=== PATIENT | female | born 1995 | race Caucasian/White ===

== ENCOUNTER 2016-11-03 11:22 | Outpatient (CLI) | payer MEDICAID | END 2016-11-03 11:23 | disposition home or self-care (01) | DX: M25.572 Pain in left ankle and joints of left foot (principal); M79.672 Pain in left foot ==

== ENCOUNTER 2016-12-30 13:32 | Emergency (ER) | payer MEDICAID | END 2016-12-30 14:45 | disposition left against medical advice (07) | DX: Z53.21 Procedure and treatment not carried out due to patient leaving prior to being seen by health care provider (principal) ==

== ENCOUNTER 2017-01-11 14:04 | Outpatient (CLI) | payer MEDICAID | END 2017-01-11 14:05 | DX: M25.50 Pain in unspecified joint (principal) ==

== ENCOUNTER 2017-03-09 13:51 | Outpatient (CLI) | payer MEDICAID ==
[2017-03-09 18:00] LABS: CALCIUM 9.4 mg/dL (8.5-10.3); CREATININE 0.8 mg/dL (0.4-1.0); POTASSIUM 3.6 mmol/L (3.5-5.0)
[2017-03-09 18:15] LABS: PROLACTIN 7.4 ng/mL
[2017-03-09 18:28] LABS: THYROID STIMULATING HORMONE 1.11 uIU/mL (0.34-5.60)
== END 2017-03-09 13:52 | disposition home or self-care (01) ==
LOC: LAB.F 13:51
PROVIDERS: ATTEND Nurse Practitioner Family
DX: N64.3 Galactorrhea not associated with childbirth (principal)
CPT/HCPCS: 36415; 80048; 84146; 84443

== ENCOUNTER 2020-05-28 08:00 | Outpatient (CLI) | payer MEDICAID ==
[2020-05-28 14:29] LABS: MUDS CUTOFF CONCENTRATIONS CUTOFF CONC BELOW:
[2020-05-28 14:38] LABS: BILIRUBIN,URINE NEGATIVE (NEGATIVE); GLUCOSE, URINE (UA) NEGATIVE (NEGATIVE); KETONES,URINE (UA) NEGATIVE (NEGATIVE); LEUKOCYTE ESTERASE, URINE NEGATIVE (NEGATIVE); NITRITE,URINE NEGATIVE (NEGATIVE); OCCULT BLOOD,URINE NEGATIVE (NEGATIVE); PROTEIN,URINE NEGATIVE (NEGATIVE); UROBILINOGEN,URINE 0.2 (NORMAL) E.U./dL (NORMAL)
[2020-05-28 14:52] LABS: BACTERIA,URINE None Seen /HPF (None Seen); CLARITY,URINE CLEAR (CLEAR); RBC,URINE None Seen /HPF (0-5); SQUAMOUS EPITHELIAL CELL,UR MOD Squamous (<= Few)
[2020-05-28 14:53] LABS: AMPHETAMINE SCREEN,URINE NEGATIVE (NEGATIVE); BENZODIAZEPINES SCREEN, URINE NEGATIVE (NEGATIVE); COCAINE SCREEN URINE NEGATIVE (NEGATIVE); METHADONE SCREEN, URINE NEGATIVE (NEGATIVE); METHAMPHETAMINES SCREEN, URINE NEGATIVE (NEGATIVE); OPIATE SCREEN, URINE NEGATIVE (NEGATIVE); OXYCODONE SCREEN, URINE NEGATIVE (NEGATIVE); PROPOXYPHENE SCREEN, URINE NEGATIVE (NEGATIVE); TRICYCLIC ANTIDEPRESSANT,URINE NEGATIVE (NEGATIVE)
== END 2020-05-28 23:59 | disposition home or self-care (01) ==
LOC: LAB.R 08:00
PROVIDERS: ATTEND Nurse Practitioner Obstetrics & Gynecology
DX: Z36.89 Encounter for other specified antenatal screening (principal); Z11.3 Encounter for screening for infections with a predominantly sexual mode of transmission
CPT/HCPCS: 80306; 81001; 87086; 87491; 87591; 87661

== ENCOUNTER 2020-05-28 09:34 | Outpatient (CLI) | payer MEDICAID ==
[2020-05-28 10:48] LABS: BASOPHILS # (AUTO) 0.1 10^3/uL (0.0-0.1); BASOPHILS % (AUTO) 0.5 %; EOSINOPHILS # (AUTO) 0.1 10^3/uL (0.0-0.7); EOSINOPHILS % (AUTO) 0.7 %; HGB - HEMOGLOBIN 13.8 g/dL (12.0-16.0); LYMPHOCYTES # (AUTO) 1.9 10^3/uL (1.5-3.5); LYMPHOCYTES % (AUTO) 18.7 %; MEAN CORPUSCULAR HEMOGLOBIN 31.2 pg (27.0-31.0); MEAN CORPUSCULAR HGB CONC 34.1 g/dL (32.0-36.0); MEAN CORPUSCULAR VOLUME 91.4 fL (81.0-99.0); MEAN PLATELET VOLUME 10.4 fL (7.9-10.8); MONOCYTES # (AUTO) 0.7 10^3/uL (0.0-1.0); MONOCYTES % (AUTO) 6.9 %; NEUTROPHILS # (AUTO) 7.5 10^3/uL (1.5-6.6); NEUTROPHILS % (AUTO) 72.7 %; PLT - PLATELET COUNT 269 10^3/uL (130-450); RED BLOOD COUNT 4.43 10^6/uL (4.20-5.40); RED CELL DISTRIBUTION WIDTH 12.3 % (12.0-15.0); WHITE BLOOD COUNT 10.3 x10^3/uL (4.8-10.8)
[2020-05-29 12:11] LABS: HIV AG/AB 4TH GEN NON-REACTIVE (NON-REACTIVE)
[2020-05-29 12:42] LABS: HEPATITIS B SURFACE ANTIGEN NON-REACTIVE (NON-REACTIVE); HEPATITIS C ANTIBODY NON-REACTIVE (NON-REACTIVE)
== END 2020-05-28 09:35 | disposition home or self-care (01) ==
LOC: LAB 09:34
PROVIDERS: ATTEND Nurse Practitioner Obstetrics & Gynecology
DX: Z36.89 Encounter for other specified antenatal screening (principal)
CPT/HCPCS: 36415; 81599; 85025; 86592; 86762; 86803; 86850; 86870; 86900; 86901; 87340; 87389

== ENCOUNTER 2020-06-04 13:08 | Emergency (ER) | payer MEDICAID ==
[2020-06-04 14:24] LABS: BASOPHILS # (AUTO) 0.1 10^3/uL (0.0-0.1); BASOPHILS % (AUTO) 0.5 %; EOSINOPHILS # (AUTO) 0.1 10^3/uL (0.0-0.7); EOSINOPHILS % (AUTO) 0.7 %; HGB - HEMOGLOBIN 13.5 g/dL (12.0-16.0); LYMPHOCYTES # (AUTO) 2.4 10^3/uL (1.5-3.5); LYMPHOCYTES % (AUTO) 17.1 %; MEAN CORPUSCULAR HEMOGLOBIN 31.1 pg (27.0-31.0); MEAN CORPUSCULAR HGB CONC 34.2 g/dL (32.0-36.0); MEAN PLATELET VOLUME 10.5 fL (7.9-10.8); MONOCYTES # (AUTO) 0.8 10^3/uL (0.0-1.0); MONOCYTES % (AUTO) 5.5 %; NEUTROPHILS # (AUTO) 10.8 10^3/uL (1.5-6.6); NEUTROPHILS % (AUTO) 75.6 %; PLT - PLATELET COUNT 256 10^3/uL (130-450); RED BLOOD COUNT 4.34 10^6/uL (4.20-5.40); RED CELL DISTRIBUTION WIDTH 12.3 % (12.0-15.0); WHITE BLOOD COUNT 14.3 x10^3/uL (4.8-10.8)
[2020-06-04 14:36] LABS: ALBUMIN/GLOBULIN RATIO 1.1 (1.0-2.2); BILIRUBIN,TOTAL 0.6 mg/dL (0.2-1.0); CALCIUM 9.2 mg/dL (8.5-10.3); CREATININE 0.7 mg/dL (0.4-1.0); TOTAL PROTEIN 7.6 g/dL (6.7-8.2)
[2020-06-04 15:48] LABS: BILIRUBIN,URINE NEGATIVE (NEGATIVE); CLARITY,URINE CLEAR (CLEAR); GLUCOSE, URINE (UA) NEGATIVE (NEGATIVE); KETONES,URINE (UA) 40 mg/dL (NEGATIVE); LEUKOCYTE ESTERASE, URINE NEGATIVE (NEGATIVE); NITRITE,URINE NEGATIVE (NEGATIVE); OCCULT BLOOD,URINE NEGATIVE (NEGATIVE); PH,URINE 5.5 PH (5.0-7.5); PROTEIN,URINE NEGATIVE (NEGATIVE); UROBILINOGEN,URINE 0.2 (NORMAL) E.U./dL (NORMAL)
[2020-06-04] MEDS ORDERED: SODIUM CHLORIDE 0.9% 1,000 ML IV STA ×2 (16:31)
[2020-06-04] MEDS ORDERED: ONDANSETRON 4 MG/2 ML VIAL IVP STA (16:31)
--- NOTE | 2020-06-04 16:55 | ED Physician Documentation ---
History of Present Illness - Stated complaint Stated Complaint: NAUSEA/WEAKNESS - Chief complaint Chief Complaint: Abd Pain - History obtained from History obtained from: Patient - Additonal information Additional information: 24-year-old female comes to the emergency department for evaluation of persistent nausea and vomiting in the setting of . She reports that she is 13 weeks tomorrow. She for the last 6 weeks she has been having persistent nausea and vomiting especially in the a.m. The OB clinic has prescribed her diplegia's but she does not find it effective. Only occasionally over the last few days has she been able to tolerate clear liquids or crackers. She denies vaginal bleeding loss of fluids or lower pelvic pain cramping. She had an ultrasound approximately 1 week ago that she reports as showing a live IUP She has no pertinent past surgical history. 2 para 0 she had a spontaneous miscarriage about 6 weeks before she became with his current Review of Systems Constitutional: reports: Reviewed and negative Ears: reports: Reviewed and negative Nose: reports: Reviewed and negative Throat: reports: Reviewed and negative Cardiac: reports: Reviewed and negative Respiratory: reports: Reviewed and negative GI: reports: Nausea, Vomiting. denies: Abdominal Pain, Abdominal Swelling, Constipation, Diarrhea, Hematemesis : reports: Now EGA. denies: Dysuria, Frequency, Hesitancy, Vaginal bleeding, Irregular menses Skin: reports: Reviewed and negative Musculoskeletal: reports: Reviewed and negative Neurologic: reports: Reviewed and negative PD PAST MEDICAL HISTORY - Past Surgical History Past Surgical History: No - Present Medications Home Medications: Ambulatory Orders Medication Instructions Recorded Confirmed Venlafaxine [Effexor] 37.5 mg PO BID 12/30/16 12/30/16 busPIRone [Buspar] 10 mg PO BID 12/30/16 12/30/16 Ondansetron Odt [Zofran] 4 mg TL Q6H PRN #20 tablet 06/04/20 - Allergies Allergies/Adverse Reactions: Allergies Allergy/AdvReac Type Severity Reaction Status Date / Time No Known Drug Allergies Allergy Verified 06/04/20 13:31 - Social History Does the pt smoke?: Yes Smoking Status: Current every day smoker Does the pt drink ETOH?: Yes Does the pt have substance abuse?: Yes - Immunizations Immunizations are current?: No Immunizations: TDAP >10years/unknown - POLST Patient has POLST: No PD ED PE NORMAL - General General: Alert and oriented X 3, No acute distress, Well developed/nourished - HEENT HEENT: Atraumatic, EOMI - Neck Neck: Supple, no meningeal sign, No adenopathy - Cardiac Cardiac: RRR, No murmur, Strong equal pulses - Respiratory Respiratory: No respiratory distress, Clear bilaterally - Abdomen Abdomen: Normal bowel sounds, Non tender - Back Back: No CVA TTP, No spinal TTP - Derm Derm: Normal color, No rash Results - Vitals Vitals: Vital Signs - 24 hr 06/04/20 06/04/20 13:26 15:34 Temperature 36.5 C 37.2 C Heart Rate 92 66 Respiratory 14 24 Rate Blood Pressure 129/63 138/74 H O2 Saturation 98 99 Oxygen O2 Source Room air - Labs Labs: Laboratory Tests 06/04/20 06/04/20 06/04/20 14:12 14:12 15:40 WBC 14.3 H RBC 4.34 Hgb 13.5 Hct 39.5 MCV 91.0 MCH 31.1 H MCHC 34.2 RDW 12.3 Plt Count 256 MPV 10.5 Neut # (Auto) 10.8 H Lymph # (Auto) 2.4 Bent # (Auto) 0.8 Eos # (Auto) 0.1 Baso # (Auto) 0.1 Absolute Nucleated RBC 0.00 Nucleated RBC % 0.0 Sodium 135 Potassium 3.4 L Chloride 101 Carbon Dioxide 24 Anion Gap 10.0 BUN 6 Creatinine 0.7 Estimated GFR (MDRD) 102 Glucose 79 Calcium 9.2 Total Bilirubin 0.6 AST 17 ALT 17 Alkaline Phosphatase 51 Total Protein 7.6 Albumin 4.0 Globulin 3.6 Albumin/Globulin Ratio 1.1 Lipase 21 L Urine Color YELLOW Urine Clarity CLEAR Urine pH 5.5 Ur Specific [place] >=1.030 H Urine Protein NEGATIVE Urine Glucose (UA) NEGATIVE Urine Ketones 40 H Urine Occult Blood NEGATIVE Urine Nitrite NEGATIVE Urine Bilirubin NEGATIVE Urine Urobilinogen 0.2 (NORMAL) Ur Leukocyte Esterase NEGATIVE Ur Microscopic Review NOT INDICATED Urine Culture Comments NOT INDICATED PD MEDICAL DECISION MAKING - ED course Complexity details: reviewed old records, reviewed results, considered differential, d/w patient ED course: 24-year-old female presents to the emergency department Uncontrolled nausea and vomiting in the setting of . Patient had been prescribed likely just through her OB but it was not effective. Here in the emergency department she was given 2 L of IV fluid as well as 4 mg of Zofran. Following that she was able to tolerate clear liquids. She has no complaints of lower abdominal pain vaginal bleeding or loss of fluids. She is also had an ultrasound that does confirm an IUP. Her lab work is otherwise unremarkable sparing mild leukocytosis that I feel is secondary to marginalization in the setting of vomiting. Her urine does not show signs of infection. Will be discharged home with a prescription for Zofran. Will recommend frequent sips of water liquids and simple meals. Discussed that vomiting typically improves starting at the second trimester. She will schedule close follow-up with her OB Departure - Departure Disposition: Home, Self Care Clinical Impression: Morning sickness Record reviewed to determine appropriate education?: Yes Instructions: ED Preg Morning Sickness Follow-Up: [facility] [Provider Group] Prescriptions: Ondansetron Odt [Zofran] 4 mg TL Q6H PRN #20 tablet PRN Reason: Nausea / Vomiting Comments: Eda most morning sickness improves once the second trimester gets well underway. I recommend that you continue with the diplegia's and use the Zofran only if you are not able to have good results with likely just. Please drink frequent sips of water and eat multiple small meals and snacks throughout the day. If at any point you have vaginal bleeding fevers or suddenly severe lower pelvic pain please return to the ER. Also please discuss this ER visit with your obstetricians.
[2020-06-04 18:37] VITALS: BP 128/69
== END 2020-06-04 18:38 | disposition home or self-care (01) ==
LOC: ED 13:08
DX: O21.9 Vomiting of pregnancy, unspecified (principal); O99.331 Smoking (tobacco) complicating pregnancy, first trimester; F17.200 Nicotine dependence, unspecified, uncomplicated; Z3A.12 12 weeks gestation of pregnancy
CPT/HCPCS: 36415; 80053; 81001; 81003; 83690; 85025; 87086; 96374; 99284

== ENCOUNTER 2020-06-27 08:00 | Outpatient (CLI) | payer MEDICAID ==
[2020-06-27 21:43] LABS: TRICHOMONAS VAGINALIS DNA NEGATIVE (NEGATIVE)
== END 2020-06-27 23:59 | disposition home or self-care (01) ==
LOC: LAB.R 08:00
PROVIDERS: ATTEND Advanced Practice Midwife
DX: Z34.80 Encounter for supervision of other normal pregnancy, unspecified trimester (principal); Z11.3 Encounter for screening for infections with a predominantly sexual mode of transmission
CPT/HCPCS: 87491; 87591; 87661

== ENCOUNTER 2020-07-04 08:00 | Outpatient (CLI) | payer MEDICAID ==
[2020-07-05 20:15] LABS: CANDIDA GROUP DNA NEGATIVE (NEGATIVE); CANDIDA KRUSEI DNA NEGATIVE (NEGATIVE); TRICHOMONAS VAGINALIS DNA NEGATIVE (NEGATIVE)
== END 2020-07-04 23:59 | disposition home or self-care (01) ==
LOC: LAB.R 08:00
PROVIDERS: ATTEND Obstetrics & Gynecology
DX: N89.8 Other specified noninflammatory disorders of vagina (principal); R30.9 Painful micturition, unspecified
CPT/HCPCS: 87086; 87661; 87801

== ENCOUNTER 2020-07-22 12:46 | Outpatient (CLI) | payer MEDICAID ==
--- NOTE | 2020-07-23 19:43 | Ultrasound Report ---
PROCEDURE: OB Detailed Eval INDICATIONS: SUPERVISION OF NORMAL OUTSIDE/PRIOR DATING DATA: Last menstrual period (LMP): 03/06/2020. LMP-based estimated date of delivery (ROSETTE): 12/11/2020. First dating scan (date and location): Outside imaging center dated 04/23/2020. Estimated date of delivery (ROSETTE) from first dating scan: 12/14/2020. TECHNIQUE: Real-time scanning was performed of the fetus, with image documentation and biometric measurements. Endovaginal scanning: Not performed COMPARISON: Images not available FINDINGS: General: A single living intrauterine gestation is present. Presentation: Variable with head down Placenta: Placental position is anterior, without previa. Amniotic fluid index: 10.7 cm, 14% for gestational age. Largest vertical pocket measures 3.1 cm heart rate: 156 beats per minute. Maternal cervical canal: 3.3 cm long; normal length is 2.5 cm or more. biometrics: Biparietal diameter: 4.3 cm, correlating with 19 weeks and 0 days Head circumference: 16.3 cm, correlating with 19 weeks and 0 days Abdominal circumference: 14.3 cm, correlating with 19 weeks and 5 days Femur length: 3.3 cm, correlating with 19 weeks and 5 days Estimated gestational age from initial scan: not applicable. Composite gestational age from present scan: 19 weeks and 2 days Estimated weight and percentile: 301 g which correlates with the 64th percentile based off ges tational age Measurement variability in biometric dating: +/- 10 days from 12-20 weeks gestation, +/- 2 weeks from 20-30 weeks gestation, +/- 3 weeks at 30 weeks gestation or later. Anatomic survey: Neuro: Ventricles are normal at less than 10 mm. Cisterna magna is normal at 3-11 mm. Cerebellum i s normal in size and morphology. Nuchal skin fold: Normal at less than 6 mm between 14 and 20 weeks gestational age. Face: Nose and lips, facial profile are normal. Spine: No evidence for spina bifida. Heart: 4-chambered heart is present, with normal ventricular outflow tracts. Diaphragm: Diaphragm is intact. Stomach: Left-sided stomach is present. Kidneys: No hydronephrosis. Normal is less than 5 mm in 2nd trimester, less than 7 mm in 3rd trimester. Cord: 3 vessel cord has orthotopic insertion. Bladder: Normal in size. Extremities: All 4 extremities are visualized. IMPRESSION: 1. Single living intrauterine gestation with an estimated sonographic gestational age of approximatel y 19 weeks and 2 days. Estimated weight measured 301 g which correlates with the 64th percentil e for gestational age. 2. Normal routine second trimester anatomic screening survey. Reviewed by: Charlie Duvall MD on 07/23/2020 6:41 PM [facility] Approved by: Charlie Duvall MD on 07/23/2020 6:41 PM [facility] Station ID: [id number]
== END 2020-07-22 12:47 | disposition home or self-care (01) ==
LOC: DI 12:46
PROVIDERS: ATTEND Advanced Practice Midwife
DX: Z34.80 Encounter for supervision of other normal pregnancy, unspecified trimester (principal)
CPT/HCPCS: 76811

== ENCOUNTER 2020-08-27 10:48 | Outpatient (CLI) | payer MEDICAID ==
[2020-08-27 11:29] LABS: HGB - HEMOGLOBIN 11.9 g/dL (12.0-16.0); MEAN CORPUSCULAR HGB CONC 34.2 g/dL (32.0-36.0); MEAN CORPUSCULAR VOLUME 93.5 fL (81.0-99.0); MEAN PLATELET VOLUME 10.6 fL (7.9-10.8); RED BLOOD COUNT 3.72 10^6/uL (4.20-5.40); RED CELL DISTRIBUTION WIDTH 12.2 % (12.0-15.0); WHITE BLOOD COUNT 12.9 x10^3/uL (4.8-10.8)
== END 2020-08-27 10:49 | disposition home or self-care (01) ==
LOC: LAB 10:48
PROVIDERS: ATTEND Nurse Practitioner Obstetrics & Gynecology
DX: Z36.89 Encounter for other specified antenatal screening (principal)
CPT/HCPCS: 36415; 82950; 85027; 86787; 86850

== ENCOUNTER 2021-04-20 15:46 | Emergency (ER) | payer MEDICAID ==
[2021-04-20] MEDS ORDERED: SODIUM CHLORIDE 0.9% 1,000 ML IV STA (16:15)
[2021-04-20] MEDS ORDERED: KETOROLAC 60 MG/2 ML VIAL IM STA (16:16)
--- NOTE | 2021-04-20 16:19 | ED Physician Documentation ---
History of Present Illness - Stated complaint Stated Complaint: ABD PX - Chief complaint Chief Complaint: Abd Pain - History obtained from History obtained from: Patient - History of Present Illness Pain level max: 7 Pain level now: 7 - Additonal information Additional information: patient with pelvic pain for 3-4 days. States took a test and this was negative. States concern for possible STD and she has a new partner. states her discharge is different, but can't say how. Review of Systems Ten Systems: 10 systems reviewed and negative Constitutional: denies: Fever, Chills Throat: denies: Sore throat Cardiac: denies: Chest pain / pressure, Palpitations Respiratory: denies: Cough GI: reports: Constipation, Diarrhea. 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 : None Psych: None Musculoskeletal: None Derm: None - Past Surgical History Past Surgical History: No - Present Medications Home Medications: Ambulatory Orders Medication Instructions Recorded Confirmed Doxycycline Hyclate 100 mg PO BID #28 04/20/21 Oxycodone HCl/Acetaminophen 1 - 2 each PO Q6H PRN #14 tablet 04/20/21 [Percocet 5-325 mg Tablet] metroNIDAZOLE [Flagyl] 500 mg PO BID #28 tablet 04/20/21 - Allergies Allergies/Adverse Reactions: Allergies Allergy/AdvReac Type Severity Reaction Status Date / Time No Known Drug Allergies Allergy Verified 04/20/21 16:04 - Social History Does the pt smoke?: Yes Smoking Status: Current every day smoker Does the pt drink ETOH?: Yes Does the pt have substance abuse?: Yes - Immunizations Immunizations are current?: No Immunizations: TDAP >10years/unknown - POLST Patient has POLST: No PD ED PE NORMAL - Vitals Vital signs reviewed: Yes - General General: Alert and oriented X 3, No acute distress, Well developed/nourished - HEENT HEENT: PERRL, Moist mucous membranes - Neck Neck: Supple, no meningeal sign - Cardiac Cardiac: RRR, Strong equal pulses - Respiratory Respiratory: No respiratory distress, Clear bilaterally - Abdomen Abdomen: Soft, Non distended, Other (TTP suprapubic. no peritoneal signs. no other abd tenderness. ) - Derm Derm: Warm and dry - Extremities Extremities: No edema - Neuro Neuro: Alert and oriented X 3 - Psych Psych: Normal mood, Normal affect Results - Vitals Vitals: Oxygen O2 Source Room air - Labs Labs: Laboratory Tests 04/20/21 04/20/21 04/20/21 16:14 16:27 16:27 WBC 11.8 H RBC 5.04 Hgb 15.0 Hct 44.8 MCV 88.9 MCH 29.8 MCHC 33.5 RDW 12.9 Plt Count 232 MPV 10.9 H Neut # (Auto) 9.2 H Lymph # (Auto) 1.4 L [place] # (Auto) 1.0 Eos # (Auto) 0.1 Baso # (Auto) 0.1 Absolute Nucleated RBC 0.00 Nucleated RBC % 0.0 Sodium 137 Potassium 3.5 Chloride 101 Carbon Dioxide 27 Anion Gap 9.0 BUN 7 Creatinine 1.0 Estimated GFR (MDRD) 67 L Glucose 102 H Calcium 9.0 Total Bilirubin 0.6 AST 19 ALT 19 Alkaline Phosphatase 65 Total Protein 7.5 Albumin 4.2 Globulin 3.3 Albumin/Globulin Ratio 1.3 Lipase 18 L Urine Color YELLOW Urine Clarity HAZY Urine pH 5.5 Ur Specific [place] >=1.030 H Urine Protein NEGATIVE Urine Glucose (UA) NEGATIVE Urine Ketones NEGATIVE Urine Occult Blood T Urine Nitrite NEGATIVE Urine Bilirubin NEGATIVE Urine Urobilinogen 0.2 (NORMAL) Ur Leukocyte Esterase MODERATE H Urine RBC 6-10 H Urine WBC 11-25 H Ur Squamous Epith Cells MOD Squamous H Urine Bacteria Few Urine Mucus Few Strands Ur Microscopic Review INDICATED Urine Culture Comments NOT INDICATED Urine HCG, Qual NEGATIVE C. glabrata (PCR) C. krusei (PCR) [place] species DNA Chlam trachomat DNA PCR N.gonorrhoeae DNA (PCR) T. vaginalis (PCR) Bact Vaginosis (PCR) 04/20/21 04/20/21 17:45 17:45 WBC RBC Hgb Hct MCV MCH MCHC RDW Plt Count MPV Neut # (Auto) Lymph # (Auto) Cass # (Auto) Eos # (Auto) Baso # (Auto) Absolute Nucleated RBC Nucleated RBC % Sodium Potassium Chloride Carbon Dioxide Anion Gap BUN Creatinine Estimated GFR (MDRD) Glucose Calcium Total Bilirubin AST ALT Alkaline Phosphatase Total Protein Albumin Globulin Albumin/Globulin Ratio Lipase Urine Color Urine Clarity Urine pH Ur Specific [place] Urine Protein Urine Glucose (UA) Urine Ketones Urine Occult Blood Urine Nitrite Urine Bilirubin Urine Urobilinogen Ur Leukocyte Esterase Urine RBC Urine WBC Ur Squamous Epith Cells Urine Bacteria Urine Mucus Ur Microscopic Review Urine Culture Comments Urine HCG, Qual C. glabrata (PCR) NEGATIVE C. krusei (PCR) NEGATIVE [place] species DNA NEGATIVE Chlam trachomat DNA PCR POSITIVE A N.gonorrhoeae DNA (PCR) NEGATIVE T. vaginalis (PCR) NEGATIVE NEGATIVE Bact Vaginosis (PCR) POSITIVE A - Rads (name of study) pelvic US. Radiology: Final report received, EMP read contemporaneously, See rad report (Left ovarian cyst, otherwise normal) PD MEDICAL DECISION MAKING - ED course Complexity details: reviewed results, re-evaluated patient, considered differential, d/w patient ED course: 25-year-old female with what appears to be PID. Given Rocephin and doxycycline here. We will start Flagyl as well. Pelvic ultrasound reveals a left-sided ovarian cyst. She will follow up with her doctor for repeat ultrasound in approximately 6 weeks. Patient counseled the partners need to be tested and treated as well. Patient counseled regarding signs and symptoms for which I believe and urgent re-evaluation would be necessary. Patient with good understanding of and agreement to plan and is comfortable going home at this time This document was made in part using voice recognition software. While efforts are made to proofread this document, sound alike and grammatical errors may occur. Departure - Departure Disposition: 01 Home, Self Care Clinical Impression: PID (acute pelvic inflammatory disease) Ovarian cyst Qualifiers: Laterality: left Qualified Code(s): N83.202 - Unspecified ovarian cyst, left side Condition: Good Instructions: ED Cyst Ovarian, ED PID Follow-Up: your,doctor in 1 week [Other] Prescriptions: Doxycycline Hyclate 100 mg PO BID #28 metroNIDAZOLE [Flagyl] 500 mg PO BID #28 tablet Oxycodone HCl/Acetaminophen [Percocet 5-325 mg Tablet] 1 - 2 each PO Q6H PRN #14 tablet PRN Reason: pain Comments: Take all antibiotics until gone. Follow-up with your doctor for further care. Return if you worsen. Your partner should be tested and treated as well. The confirmatory test for gonorrhea and chlamydia should return tonight or tomorrow. I am prescribing a short course of narcotic pain medication for you. These are potentially dangerous and addictive medications that should be used carefully. These medications may constipate you. Take an [id number] stool softener (docusate) twice daily with plenty of water while taking these medications. If you go 24 hours without a bowel movement, take [id number]-[id number] miralax, per package instructions. Do not drink or drive while taking these medications. If you received narcotic or sedating medications while in the emergency department, do not drive for 24 hours. Store this medication in a safe, secure place and out of reach of children. It is a violation of federal law to give or sell this medication to another person or to use in a manner other than prescribed. The ED will not refill narcotic prescriptions, including prescriptions lost or stolen. To dispose of unwanted medications: 1. [facility] at [address] in [place] has a medication drop box. They accept prescription medications (in pill form) Wednesday through Wednesday 9:00 a.m. to 5:00 p.m. 2. [facility] [employer] accepts prescription medications (in pill form only) for disposal year round. Call for more information. 3. Contact the [facility] for the next [facility] sponsored prescription drug collection event. , [phone], or [phone]; Discharge Date/Time: 04/20/21 20:02
[2021-04-20 16:37] LABS: HCT - HEMATOCRIT 44.8 % (37.0-47.0); MEAN CORPUSCULAR HEMOGLOBIN 29.8 pg (27.0-31.0); MEAN CORPUSCULAR HGB CONC 33.5 g/dL (32.0-36.0); MEAN CORPUSCULAR VOLUME 88.9 fL (81.0-99.0); RED BLOOD COUNT 5.04 10^6/uL (4.20-5.40); WHITE BLOOD COUNT 11.8 x10^3/uL (4.8-10.8)
[2021-04-20 16:38] LABS: BASOPHILS % (AUTO) 0.4 %; EOSINOPHILS % (AUTO) 0.6 %; LYMPHOCYTES % (AUTO) 12.1 %; MEAN PLATELET VOLUME 10.9 fL (7.9-10.8); MONOCYTES % (AUTO) 8.8 %; NEUTROPHILS % (AUTO) 77.8 %; PLT - PLATELET COUNT 232 10^3/uL (130-450); RED CELL DISTRIBUTION WIDTH 12.9 % (12.0-15.0)
[2021-04-20 16:39] LABS: BASOPHILS # (AUTO) 0.1 10^3/uL (0.0-0.1); EOSINOPHILS # (AUTO) 0.1 10^3/uL (0.0-0.7); LYMPHOCYTES # (AUTO) 1.4 10^3/uL (1.5-3.5); NEUTROPHILS # (AUTO) 9.2 10^3/uL (1.5-6.6)
[2021-04-20 16:45] LABS: CLARITY,URINE HAZY (CLEAR); LEUKOCYTE ESTERASE, URINE MODERATE (NEGATIVE); NITRITE,URINE NEGATIVE (NEGATIVE); PROTEIN,URINE NEGATIVE (NEGATIVE); UROBILINOGEN,URINE 0.2 (NORMAL) E.U./dL (NORMAL)
[2021-04-20] MEDS ORDERED: KETOROLAC 30 MG/ML VIAL IVP STA (16:45)
[2021-04-20 16:46] LABS: BILIRUBIN,URINE NEGATIVE (NEGATIVE); KETONES,URINE (UA) NEGATIVE (NEGATIVE); OCCULT BLOOD,URINE T (NEGATIVE); PH,URINE 5.5 PH (5.0-7.5)
[2021-04-20 16:47] LABS: GLUCOSE, URINE (UA) NEGATIVE (NEGATIVE); HCG UR QUAL NEGATIVE
[2021-04-20 16:48] LABS: BACTERIA,URINE Few /HPF (None Seen); MUCUS,URINE Few Strands; SQUAMOUS EPITHELIAL CELL,UR MOD Squamous (<= Few)
[2021-04-20] MEDS ORDERED: KETOROLAC 30 MG/ML VIAL ONE (16:51)
[2021-04-20 16:55] LABS: BILIRUBIN,TOTAL 0.6 mg/dL (0.2-1.0); POTASSIUM 3.5 mmol/L (3.5-5.0)
[2021-04-20 16:56] LABS: ALBUMIN 4.2 g/dL (3.2-5.5); ALBUMIN/GLOBULIN RATIO 1.3 (1.0-2.2); TOTAL PROTEIN 7.5 g/dL (6.7-8.2)
[2021-04-20] MEDS ORDERED: MORPHINE 2 MG/ML CARPUJECT IVP STA (17:23)
[2021-04-20] MEDS ORDERED: MORPHINE 2 MG/ML CARPUJECT ONE (17:29)
[2021-04-20] MEDS ORDERED: DOXYCYCLINE 100 MG TABLET PO STA (17:39)
[2021-04-20] MEDS ORDERED: cefTRIAXone 1 GM VIAL IVP STA (17:39)
[2021-04-20] MEDS ORDERED: DOXYCYCLINE 100 MG TABLET PO ONE (18:14)
[2021-04-20] MEDS ORDERED: cefTRIAXone 1 GM VIAL ONE (18:15)
[2021-04-20 19:31] VITALS: BP 114/80
[2021-04-20] MEDS ORDERED: oxyCODONE 5 MG TABLET PO STA (19:37)
[2021-04-20] MEDS ORDERED: oxyCODONE 5 MG TABLET ONE (19:48)
[2021-04-20 19:51] LABS: BACTERIAL VAGINOSIS DNA POSITIVE (NEGATIVE); CANDIDA GLABRATA DNA NEGATIVE (NEGATIVE); CANDIDA GROUP DNA NEGATIVE (NEGATIVE); CANDIDA KRUSEI DNA NEGATIVE (NEGATIVE); TRICHOMONAS VAGINALIS DNA NEGATIVE (NEGATIVE)
[2021-04-20 21:21] LABS: CHLAMYDIA TRACHOMATIS DNA POSITIVE (NEGATIVE); TRICHOMONAS VAGINALIS DNA NEGATIVE (NEGATIVE)
[2021-04-20 21:22] LABS: NEISSERIA GONORRHOEAE DNA NEGATIVE (NEGATIVE)
--- NOTE | 2021-04-24 15:09 | Ultrasound Report ---
PROCEDURE: TAPE RECORDER MECHANIC INDICATIONS: abd pain/ l pelvic pain TECHNIQUE: Real-time transabdominal scanning was performed of the pelvic organs, with image documentation. COMPARISON: None. FINDINGS: Uterus: Uterus is normal in size at 9.2 x 4.1 x 5.9 cm. Endometrium measures 5.6 mm in combined thi ckness. Ovaries: Right ovary measures 4.4 x 2.8 x 2.4 cm (16 mL). Left ovary measures 4.5 x 3.1 x 3.0 cm (22 mL). A simple appearing left ovarian cyst measures 2.3 x 2.0 x 2.3 cm. Arterial and venous blood meggan w seen to both ovaries. Other: No free pelvic fluid. IMPRESSION: No acute abnormality identified sonographically in the pelvis. Reviewed by: Clemente Hill MD on 04/20/2021 9:42 PM PDT Approved by: Clemente Hill MD on 04/20/2021 9:42 PM PDT Station ID: [id number]
== END 2021-04-20 20:02 | disposition home or self-care (01) ==
LOC: ED 15:46
DX: N73.9 Female pelvic inflammatory disease, unspecified (principal); N83.202 Unspecified ovarian cyst, left side; F17.200 Nicotine dependence, unspecified, uncomplicated
CPT/HCPCS: 36415; 76830; 76856; 80053; 81001; 81025; 83690; 85025; 87481; 87491; 87591; 87661; 87801; 93975; 96374; 96375; 99284; 99285; A9270; 81003; 87086

== ENCOUNTER 2021-05-11 06:18 | Outpatient (CLI) | payer MEDICAID | END 2021-05-11 06:19 | disposition critical access hospital (66) | LOC: EMS 06:18 | DX: T14.90XA Injury, unspecified, initial encounter (principal); Y04.8XXA Assault by other bodily force, initial encounter | CPT/HCPCS: A0425; A0429; A0999 ==

== ENCOUNTER 2021-05-11 06:36 | Emergency (ER) | payer OTHER, MEDICAID ==
[2021-05-11] MEDS ORDERED: oxyCODONE 5 MG TABLET PO STA (06:50)
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
[2021-05-11 09:38] VITALS: BP 122/78
== END 2021-05-11 09:43 | disposition short-term general hospital (02) ==
LOC: EDUNIT# → ED 06:36
DX: T76.21XA Adult sexual abuse, suspected, initial encounter (principal); F17.200 Nicotine dependence, unspecified, uncomplicated
CPT/HCPCS: 99284; 99285; A9270

== ENCOUNTER 2021-05-11 09:42 | Outpatient (CLI) | payer MEDICAID | END 2021-05-11 09:43 | disposition short-term general hospital (02) | LOC: EMS 09:42 | PROVIDERS: ATTEND Emergency Medicine | DX: T76.21XA Adult sexual abuse, suspected, initial encounter (principal) | CPT/HCPCS: A0425; A0428 ==